=== PATIENT | male | born 1970 | race African-American/Black ===

== ENCOUNTER 2018-03-25 07:38 | Emergency (ER) | payer MEDICAID ==
[~2018-03-25] VITALS: Ht 180.3 cm; Wt 91.0 kg
[2018-03-25] MEDS ORDERED: MORPHINE SULFATE 4 MG/ML CPJ (NOT FOR IM USE) IV STA (07:49)
[2018-03-25] MEDS ORDERED: ONDANSETRON HCL 4MG/2ML VIAL IV STA (07:49)
[2018-03-25 08:17] LABS: BASOPHILS % 0.9 % (0.0-2.0); EOSINOPHILS % 1.7 % (0.0-5.0); HEMATOCRIT. 36.3 % (42.0-52.0); HEMOGLOBIN. 12.4 g/dL (14.0-18.0); LYMPHOCYTES % 15.5 % (20.0-50.0); MEAN CORPUSCULAR HEMOGLOBIN 33.7 pg (28.0-32.0); MEAN CORPUSCULAR VOLUME 98.9 fL (80.0-94.0); MEAN PLATELET VOLUME 6.8 fl (7.4-10.4); MONOCYTES % 5.8 % (2.0-8.0); NEUTROPHILS % 76.1 % (40.0-76.0); PLATELET 247 x1000/uL (130-400); RED BLOOD CELL COUNT 3.67 mill/uL (4.7-6.1); RED CELL DISTRIBUTION WIDTH 13.5 % (11.6-14.6)
[2018-03-25 08:23] LABS: CHLORIDE 106 mEq/L (98-107)
[2018-03-25 08:26] LABS: PARTIAL THROMBOPLASTIN TIME 27.5 sec (23.4-31.0)
[2018-03-25 08:44] LABS: CREATINE KINASE 1203 IU/L (39-308)
[2018-03-25 11:04] VITALS: BP 133/83
[2018-03-25 11:59] LABS: *AMPHETAMINES SCREEN URINE NEGATIVE (NEGATIVE); *BARBITURATES SCREEN URINE NEGATIVE (NEGATIVE)
[2018-03-25 12:00] LABS: *BENZODIAZEPINES SCREEN URINE NEGATIVE (NEGATIVE); *COCAINE SCREEN URINE NEGATIVE (NEGATIVE); CANNABINOID URINE SCREEN NEGATIVE (NEGATIVE); METHADONE URINE SCREEN NEGATIVE (NEGATIVE); OPIATES URINE SCREEN PRESUMTIVE POSITIVE (NEGATIVE); PHENCYCLIDINE URINE SCREEN NEGATIVE (NEGATIVE)
== END 2018-03-25 11:59 | disposition home or self-care (01) ==
LOC: ER 07:54
DX: R07.89 Other chest pain (principal); M62.82 Rhabdomyolysis; I10 Essential (primary) hypertension; J45.909 Unspecified asthma, uncomplicated; F17.200 Nicotine dependence, unspecified, uncomplicated
CPT/HCPCS: 36415; 71045; 76604; 80053; 80305; 82550; 82553; 83690; 83880; 84484; 85025; 85610; 85730; 93005; 96374; 96375; 99285; J2270; J2405; Z7610

== ENCOUNTER 2021-10-02 07:36 | Emergency (ER) | payer BC, MEDICAID ==
[~2021-10-02] VITALS: Ht 180.3 cm; Wt 79.0 kg
[2021-10-02 07:50] VITALS: BP 144/87
[2021-10-02] MEDS ORDERED: PENICILLIN G BENZATHINE 2,400,000 UNITS/4ML SYR IM ONE (08:15)
== END 2021-10-02 10:12 | disposition home or self-care (01) ==
LOC: ER 07:36
DX: A53.9 Syphilis, unspecified (principal); J45.909 Unspecified asthma, uncomplicated
CPT/HCPCS: 86592; 96372; 99283; J0561

== ENCOUNTER 2022-06-05 10:21 | Emergency (ER) | payer BC, MEDICAID ==
[~2022-06-05] VITALS: Ht 172.7 cm; Wt 86.0 kg
[2022-06-05 12:59] LABS: CHLORIDE 104 mEq/L (98-107)
[2022-06-05 13:08] LABS: BASOPHILS % 0.5 % (0.0-2.0); EOSINOPHILS % 1.1 % (0.0-5.0); HEMATOCRIT. 40.5 % (42.0-52.0); HEMOGLOBIN. 13.7 g/dL (14.0-18.0); LYMPHOCYTES % 12.2 % (20.0-50.0); MEAN CORPUSCULAR HEMOGLOBIN 31.8 pg (28.0-32.0); MEAN CORPUSCULAR VOLUME 94.1 fL (80.0-94.0); MEAN PLATELET VOLUME 7.1 fl (7.4-10.4); MONOCYTES % 8.1 % (2.0-8.0); NEUTROPHILS % 78.1 % (40.0-76.0); PLATELET 247 x1000/uL (130-400); RED CELL DISTRIBUTION WIDTH 13.6 % (11.6-14.6)
[2022-06-05 13:09] LABS: CLARITY URINE CLOUDY (CLEAR); COLOR URINE DARK YELLOW (YELLOW); KETONES URINE 1+ (NEGATIVE); LEUKOCYTE ESTERASE URINE TRACE (NEGATIVE); NITRITE URINE NEGATIVE (NEGATIVE); OCCULT BLOOD URINE NEGATIVE (NEGATIVE); PH URINE 5.5 (4.5-8.0); PROTEIN URINE 2+ (NEGATIVE); SPECIFIC GRAVITY URINE 1.035 (1.005-1.030)
[2022-06-05 13:15] LABS: ETHANOL BLOOD < 10 mg/dL
[2022-06-05 13:22] LABS: *AMPHETAMINES SCREEN URINE PRESUMTIVE POSITIVE (NEGATIVE); *BARBITURATES SCREEN URINE NEGATIVE (NEGATIVE); *BENZODIAZEPINES SCREEN URINE NEGATIVE (NEGATIVE); *COCAINE SCREEN URINE NEGATIVE (NEGATIVE); CANNABINOID URINE SCREEN PRESUMTIVE POSITIVE (NEGATIVE); METHADONE URINE SCREEN NEGATIVE (NEGATIVE); OPIATES URINE SCREEN NEGATIVE (NEGATIVE); PHENCYCLIDINE URINE SCREEN NEGATIVE (NEGATIVE)
[2022-06-06] MEDS ORDERED: TOPUD PO (11:49)
[2022-06-08] MEDS: RISPERIDONE 1MG TABLET PO SCH (21:00)
[2022-06-09 09:00] VITALS: BP 116/76
[2022-06-09] MEDS: RISPERIDONE 1MG TABLET PO SCH (09:00)
[2022-06-09] MEDS ORDERED: ALBU6.7H9 INH (11:00)
== END 2022-06-09 11:20 | disposition home or self-care (01) ==
LOC: ER 10:35
DX: U07.1 COVID-19 (principal); F15.10 Other stimulant abuse, uncomplicated; J45.909 Unspecified asthma, uncomplicated; Z98.890 Other specified postprocedural states
CPT/HCPCS: 36415; 80053; 80305; 80307; 80320; 80329; 81003; 84443; 85025; 99285; C9803; U0003; U0005; G0480

== ENCOUNTER 2022-08-31 17:35 | Inpatient (IN) | payer MEDICARE, MEDICAID ==
[~2022-08-31] VITALS: Ht 172.7 cm; Wt 84.4 kg
[~2022-08-31 17:35] MED LIST: ALBU6.7H3 INH; TOPUD PO
[2022-08-31] MEDS ORDERED: LORAZEPAM 2MG/ML CPJ IV STA (19:47)
[2022-08-31] MEDS ORDERED: SODIUM CHLORIDE 0.9% 1,000 ML IV ONE ×2 (20:00→22:45)
[2022-08-31 21:25] LABS: BASOPHILS % 0.4 % (0.0-2.0); EOSINOPHILS % 1.1 % (0.0-5.0); HEMATOCRIT. 36.8 % (42.0-52.0); HEMOGLOBIN. 12.7 g/dL (14.0-18.0); MEAN CORPUSCULAR HEMOGLOBIN 33.9 pg (28.0-32.0); MEAN CORPUSCULAR VOLUME 98.1 fL (80.0-94.0); MEAN PLATELET VOLUME 6.6 fl (7.4-10.4); NEUTROPHILS % 77.5 % (40.0-76.0); PLATELET 290 x1000/uL (130-400); RED BLOOD CELL COUNT 3.75 mill/uL (4.7-6.1); RED CELL DISTRIBUTION WIDTH 13.2 % (11.6-14.6)
[2022-08-31] MEDS ORDERED: OLANZAPINE 10 MG/VIAL IM ONE (21:30)
[2022-08-31 21:31] LABS: CHLORIDE 98 mEq/L (98-107)
[2022-08-31 21:51] LABS: CREATINE KINASE 2073 IU/L (39-308); ETHANOL BLOOD < 10 mg/dL
[2022-09-01 10:20] VITALS: BP 123/86
[2022-09-01] MEDS: ENOXAPARIN 40MG/0.4ML SYR SUBCUT SCH (12:00)
[2022-09-01] MEDS ORDERED: LORAZEPAM 2MG/ML CPJ IV PRN (12:30)
[2022-09-01] MEDS ORDERED: MAGNESIUM/ALUMINUM HYDROXIDE/SIMETHICONE 30ML UDC PO PRN (12:30)
[2022-09-01] MEDS ORDERED: CLONIDINE 0.1MG TABLET PO PRN (12:30)
[2022-09-01] MEDS ORDERED: ONDANSETRON HCL 4MG/2ML INJ IV PRN (12:30)
[2022-09-01 17:17] LABS: HEMATOCRIT 38.7 % (42.0-52.0); HEMOGLOBIN 13.2 g/dL (14.0-18.0); MEAN CORPUSCULAR HEMOGLOBIN 33.3 pg (28.0-32.0); MEAN CORPUSCULAR VOLUME 97.9 fL (80.0-94.0); PLATELET 313 x1000/uL (130-400); RED BLOOD CELL COUNT 3.95 mill/uL (4.7-6.1); RED CELL DISTRIBUTION WIDTH 12.9 % (11.6-14.6)
[2022-09-01 17:39] LABS: CHLORIDE 103 mEq/L (98-107)
[2022-09-01] MEDS: SODIUM CHLORIDE 0.9% 1,000 ML IV SCH ×2 (17:45→20:51)
[2022-09-01 18:01] LABS: CREATINE KINASE 1231 IU/L (39-308)
[2022-09-01] MEDS ORDERED: NALOXONE HCL 0.4MG/ML VIAL IV PRN (19:15)
[2022-09-01] MEDS ORDERED: POTASSIUM CHLORIDE 20MEQ TABLET SR PO NR (19:15)
[2022-09-01] MEDS: FLUOXETINE HCL 10 MG CAPSULE PO SCH (20:49)
[2022-09-01] MEDS: HYDROCODONE/ACETAMINOPHEN 5/325MG TABLET PO PRN (20:51)
[2022-09-01] MEDS: NICOTINE 14MG PATCH TD SCH (20:56)
[2022-09-02] VITALS: BP 120/77
[2022-09-02 01:16] LABS: CREATINE KINASE 918 IU/L (39-308)
[2022-09-02 04:00] VITALS: BP 120/61
[2022-09-02 08:00] VITALS: BP 107/71
[2022-09-02 08:32] LABS: BASOPHILS % 0.5 % (0.0-2.0); EOSINOPHILS % 4.3 % (0.0-5.0); HEMATOCRIT. 37.9 % (42.0-52.0); HEMOGLOBIN. 13.1 g/dL (14.0-18.0); LYMPHOCYTES % 22.3 % (20.0-50.0); MEAN CORPUSCULAR HEMOGLOBIN 33.7 pg (28.0-32.0); MEAN CORPUSCULAR VOLUME 97.7 fL (80.0-94.0); MEAN PLATELET VOLUME 6.9 fl (7.4-10.4); MONOCYTES % 10.8 % (2.0-8.0); NEUTROPHILS % 62.1 % (40.0-76.0); PLATELET 296 x1000/uL (130-400); RED BLOOD CELL COUNT 3.88 mill/uL (4.7-6.1); RED CELL DISTRIBUTION WIDTH 12.9 % (11.6-14.6)
[2022-09-02] MEDS: NICOTINE 14MG PATCH TD SCH (08:43)
[2022-09-02] MEDS: FLUOXETINE HCL 10 MG CAPSULE PO SCH (08:43)
[2022-09-02] MEDS: HYDROCODONE/ACETAMINOPHEN 5/325MG TABLET PO PRN ×4 (08:44→21:15)
[2022-09-02 12:00] VITALS: BP 152/80
[2022-09-02] MEDS: SODIUM CHLORIDE 0.9% 1,000 ML IV SCH ×2 (12:30→21:16)
[2022-09-02] MEDS: ENOXAPARIN 40MG/0.4ML SYR SUBCUT SCH (13:16)
[2022-09-02 15:59] LABS: CREATINE KINASE 839 IU/L (39-308)
[2022-09-02 16:00] VITALS: BP 121/77
[2022-09-02 16:08] LABS: CHLORIDE 104 mEq/L (98-107)
[2022-09-02] MEDS: ACETAMINOPHEN 325MG TABLET PO PRN (16:18)
[2022-09-02 16:22] LABS: CREATINE KINASE 828 IU/L (39-308); PHOSPHORUS 3.6 mg/dL (2.5-4.9)
[2022-09-02 20:00] VITALS: BP 100/62
[2022-09-02 20:02] LABS: CLARITY URINE CLEAR (CLEAR); COLOR URINE YELLOW (YELLOW); KETONES URINE NEGATIVE (NEGATIVE); LEUKOCYTE ESTERASE URINE NEGATIVE (NEGATIVE); NITRITE URINE NEGATIVE (NEGATIVE); OCCULT BLOOD URINE NEGATIVE (NEGATIVE); PH URINE 6.5 (4.5-8.0); PROTEIN URINE NEGATIVE (NEGATIVE); SPECIFIC GRAVITY URINE 1.021 (1.005-1.030)
[2022-09-02 20:56] LABS: *AMPHETAMINES SCREEN URINE PRESUMTIVE POSITIVE (NEGATIVE); *BARBITURATES SCREEN URINE NEGATIVE (NEGATIVE); *BENZODIAZEPINES SCREEN URINE NEGATIVE (NEGATIVE); *COCAINE SCREEN URINE NEGATIVE (NEGATIVE); CANNABINOID URINE SCREEN NEGATIVE (NEGATIVE); METHADONE URINE SCREEN NEGATIVE (NEGATIVE); OPIATES URINE SCREEN PRESUMTIVE POSITIVE (NEGATIVE); PHENCYCLIDINE URINE SCREEN NEGATIVE (NEGATIVE)
[2022-09-03] VITALS: BP 113/54
[2022-09-03 04:00] VITALS: BP 103/72
[2022-09-03] MEDS: SODIUM CHLORIDE 0.9% 1,000 ML IV SCH (05:20)
[2022-09-03] MEDS: FLUOXETINE HCL 10 MG CAPSULE PO SCH (08:52)
[2022-09-03 09:01] LABS: BASOPHILS % 0.6 % (0.0-2.0); EOSINOPHILS % 4.6 % (0.0-5.0); HEMATOCRIT. 39.9 % (42.0-52.0); HEMOGLOBIN. 13.4 g/dL (14.0-18.0); LYMPHOCYTES % 27.7 % (20.0-50.0); MEAN CORPUSCULAR HEMOGLOBIN 33.9 pg (28.0-32.0); MEAN CORPUSCULAR VOLUME 101.2 fL (80.0-94.0); MEAN PLATELET VOLUME 6.9 fl (7.4-10.4); MONOCYTES % 10.5 % (2.0-8.0); NEUTROPHILS % 56.6 % (40.0-76.0); PLATELET 285 x1000/uL (130-400); RED BLOOD CELL COUNT 3.95 mill/uL (4.7-6.1)
[2022-09-03 09:21] LABS: CHLORIDE 109 mEq/L (98-107)
[2022-09-03] MEDS: ACETAMINOPHEN 325MG TABLET PO PRN ×2 (09:21→10:57)
[2022-09-03] MEDS: NICOTINE 14MG PATCH TD SCH (10:56)
[2022-09-03] MEDS ORDERED: FLUOX10 PO (12:30)
[2022-09-03] MEDS: ENOXAPARIN 40MG/0.4ML SYR SUBCUT SCH (13:27)
[2022-09-03 16:39] VITALS: BP 120/68
== END 2022-09-03 17:07 | disposition home health service (06) | DRG 917 ==
LOC: ER 17:35 → 6EST 22:51 → ENRESERV 09-01 06:12
PROVIDERS: ADMIT Internal Medicine; ATTEND Internal Medicine
DX: T50.991A Poisoning by other drugs, medicaments and biological substances, accidental (unintentional), initial encounter (principal); G92.8 Other toxic encephalopathy; M62.82 Rhabdomyolysis; F33.1 Major depressive disorder, recurrent, moderate; J45.909 Unspecified asthma, uncomplicated; F17.210 Nicotine dependence, cigarettes, uncomplicated; I10 Essential (primary) hypertension; Y92.89 Other specified places as the place of occurrence of the external cause; Z20.822 Contact with and (suspected) exposure to COVID-19
CPT/HCPCS: 36415; 73030; 76770; 80048; 80053; 80076; 80305; 80307; 80320; 80329; 81003; 82140; 82550; 83735; 84100; 84443; 84484; 85025; 85027; 87426; 93970; 97162; 99285; C9803; J1650; J2060; J3490; J7030; G0480

== ENCOUNTER 2022-11-10 01:16 | Inpatient (IN) | payer OTHER, MEDICAID ==
[~2022-11-10] VITALS: Ht 180.3 cm; Wt 83.6 kg
[2022-11-10] VITALS (49 sets, daily range): BP systolic 82–157; BP diastolic 49–93
[~2022-11-10 01:16] MED LIST changes: +FLUOX10 PO
[2022-11-10] MEDS ORDERED: SODIUM CHLORIDE 0.9% 1,000 ML IV ONE ×2 (01:45→03:15)
[2022-11-10] MEDS ORDERED: NALOXONE HCL 0.4 MG/ML 1ML VIAL IV PRN (01:45)
[2022-11-10 02:23] LABS: BG BASE EXCESS -14.9 mmol/L (-2.0-2.0); BG CARBOXYHEMOGLOBIN 1.3 % (0.5-1.5); BG DEOXYHEMOGLOBIN 3.8 % (0.0-5.0); BG FRACTION INSPIRED OXYGEN 100; BG HCO3 ACT 11.3 mmol/L (22.0-26.0); BG METHEMOGLOBIN 0.8 % (0.0-1.5); BG OXYGEN SATURATION 96.1 % (92.0-98.5); BG OXYHEMOGLOBIN 94.1 % (94.0-97.0); BG PCO2 27.4 mmHg (35.0-45.0); BG PH 7.232 (7.350-7.450); BG TOTAL HEMOGLOBIN 5.6 g/dL (12.0-18.0); BG VENT MODE r
[2022-11-10] MEDS ORDERED: ETOMIDATE 2MG/ML 10ML VIAL IV NR (02:30)
[2022-11-10] MEDS ORDERED: PROPOFOL 10MG/ML 100ML 100 ML IV ONE ×2 (02:30→02:45)
[2022-11-10] MEDS ORDERED: VECURONIUM BROMIDE 10 MG/VIAL IV NR (02:30)
[2022-11-10] MEDS ORDERED: ONDANSETRON HCL 4MG/2ML INJ IV NR (02:35)
[2022-11-10 02:43] LABS: BASOPHILS % 0.5 % (0.0-2.0); EOSINOPHILS % 2.3 % (0.0-5.0); HEMATOCRIT. 34.9 % (42.0-52.0); HEMOGLOBIN. 11.7 g/dL (14.0-18.0); MEAN CORPUSCULAR HEMOGLOBIN 32.7 pg (28.0-32.0); MEAN CORPUSCULAR VOLUME 97.8 fL (80.0-94.0); MEAN PLATELET VOLUME 6.7 fl (7.4-10.4); NEUTROPHILS % 67.2 % (40.0-76.0); PLATELET 289 x1000/uL (130-400); RED BLOOD CELL COUNT 3.57 mill/uL (4.7-6.1); RED CELL DISTRIBUTION WIDTH 13.1 % (11.6-14.6)
[2022-11-10] MEDS ORDERED: PROPOFOL 10MG/ML 100ML 100 ML IV NR (02:45)
[2022-11-10] MEDS ORDERED: EPINEPHRINE 0.1MG/ML (1:10,000) 10ML SYR IV NR (02:45)
[2022-11-10 02:46] LABS: CLARITY URINE CLEAR (CLEAR); COLOR URINE DARK YELLOW (YELLOW); KETONES URINE 1+ (NEGATIVE); LEUKOCYTE ESTERASE URINE TRACE (NEGATIVE); NITRITE URINE NEGATIVE (NEGATIVE); OCCULT BLOOD URINE NEGATIVE (NEGATIVE); PROTEIN URINE TRACE (NEGATIVE); SPECIFIC GRAVITY URINE 1.038 (1.005-1.030)
[2022-11-10 03:29] LABS: CHLORIDE 103 mEq/L (98-107)
[2022-11-10 03:37] LABS: ETHANOL BLOOD < 10 mg/dL
[2022-11-10 03:46] LABS: *AMPHETAMINES SCREEN URINE PRESUMTIVE POSITIVE (NEGATIVE); *BARBITURATES SCREEN URINE NEGATIVE (NEGATIVE); *BENZODIAZEPINES SCREEN URINE NEGATIVE (NEGATIVE); *COCAINE SCREEN URINE NEGATIVE (NEGATIVE); CANNABINOID URINE SCREEN NEGATIVE (NEGATIVE); METHADONE URINE SCREEN NEGATIVE (NEGATIVE); OPIATES URINE SCREEN NEGATIVE (NEGATIVE); PHENCYCLIDINE URINE SCREEN NEGATIVE (NEGATIVE)
[2022-11-10] MEDS ORDERED: NOREPINEPHRINE 8MG/250ML PMX 250 ML IV STA (05:11)
[2022-11-10] MEDS: NOREPINEPHRINE 8 MG in DEXTROSE 5% WATER 250 ML IV NR ×2 (06:22→10:49)
[2022-11-10] MEDS ORDERED: ACETAMINOPHEN 325MG TABLET PO PRN (07:30)
[2022-11-10] MEDS ORDERED: DOCUSATE SODIUM 100MG CAPSULE PO PRN (07:30)
[2022-11-10] MEDS ORDERED: NITROGLYCERIN 0.4MG TABLET SL SL PRN (07:30)
[2022-11-10] MEDS ORDERED: ATROPINE SULFATE 1MG/ML VIAL IV PRN (07:30)
[2022-11-10] MEDS ORDERED: ONDANSETRON HCL 4MG/2ML INJ IV PRN (07:30)
[2022-11-10] MEDS ORDERED: GUAIFENESIN 200MG/10ML SUGAR FREE UDC PO PRN (07:30)
[2022-11-10] MEDS ORDERED: MAGNESIUM/ALUMINUM HYDROXIDE/SIMETHICONE 30ML UDC PO PRN (07:30)
[2022-11-10] MEDS ORDERED: IPRATROPIUM/ALBUTEROL 0.5-3(2.5)MG/3ML NEB NEB PRN (07:30)
[2022-11-10] MEDS ORDERED: KETOROLAC 15MG/ML VIAL IV PRN (07:30)
[2022-11-10] MEDS ORDERED: PIPERACILLIN/TAZ 3.375G PREMIX 50 ML IV SCH (07:45)
[2022-11-10] MEDS ORDERED: KCL 20MEQ/100ML PREMIX 100 ML IV NR (08:00)
[2022-11-10] MEDS ORDERED: ENOXAPARIN 30MG/0.3ML SYR SUBCUT SCH (08:00)
[2022-11-10] MEDS: IPRATROPIUM/ALBUTEROL 0.5-3(2.5)MG/3ML NEB HHN SCH ×3 (08:28→19:50)
[2022-11-10] MEDS ORDERED: PROPOFOL 10MG/ML 100ML 100 ML IV PRN ×2 (08:30→14:45)
[2022-11-10] MEDS ORDERED: NOREPINEPHRINE 8 MG in DEXT 5% WATER 242 ML IV PRN (08:30)
[2022-11-10] MEDS: DOPAMINE 400MG/250ML PREMIX 250 ML IV SCH ×3 (09:07→20:49)
[2022-11-10 09:11] LABS: BG BASE EXCESS -4.7 mmol/L (-2.0-2.0); BG CARBOXYHEMOGLOBIN 0.5 % (0.5-1.5); BG DEOXYHEMOGLOBIN 0.4 % (0.0-5.0); BG HCO3 ACT 22.2 mmol/L (22.0-26.0); BG METHEMOGLOBIN 0.6 % (0.0-1.5); BG OXYGEN SATURATION 99.6 % (92.0-98.5); BG OXYHEMOGLOBIN 98.5 % (94.0-97.0); BG PCO2 48.3 mmHg (35.0-45.0); BG PH 7.281 (7.350-7.450); BG PO2 462.1 mmHg (75.0-100.0); BG SAMPLE SITE LEFT RADIAL; BG TOTAL HEMOGLOBIN 14.7 g/dL (12.0-18.0); BG VENT MODE VENT - AC
[2022-11-10] MEDS: PANTOPRAZOLE SODIUM 40 MG/VIAL IV SCH (09:17)
[2022-11-10 09:23] LABS: T4 FREE 1.2 ng/dL (0.76-1.46)
[2022-11-10 09:43] LABS: VITAMIN B12 SERUM 294 pg/mL (211-911)
[2022-11-10 09:52] LABS: FOLIC ACID (FOLATE) SERUM > 20.00 ng/mL (>5.38)
[2022-11-10] MEDS: DEXT 5%/LACTATED RINGERS 1,000 ML IV SCH ×2 (10:47→16:26)
[2022-11-10] MEDS ORDERED: EMTR1TAB13 MT (12:34)
[2022-11-10] MEDS ORDERED: GABA800T97 MT (12:34)
[2022-11-10] MEDS ORDERED: GABA-532 MT (12:34)
[2022-11-10] MEDS ORDERED: DULO60CA45 PO (12:34)
[2022-11-10] MEDS ORDERED: BACL20TA MT (12:34)
[2022-11-10] MEDS ORDERED: NAPR-681 MT (12:34)
[2022-11-10] MEDS ORDERED: GABA-290 MT (12:34)
[2022-11-10] MEDS: PIPERACILLIN/TAZOBACTAM 3.375G in DEXT 5% WATER 50ML IV SCH ×2 (14:01→20:49)
[2022-11-10] MEDS: ENOXAPARIN 30MG/0.3ML SYR SUBCUT SCH ×2 (14:01→20:47)
[2022-11-10] MEDS ORDERED: NOREPINEPHRINE 32 MG in DEXT 5% WATER 218 ML IV PRN (14:45)
[2022-11-10 17:39] LABS: PHOSPHORUS 0.9 mg/dL (2.5-4.9)
[2022-11-10] MEDS ORDERED: POTASSIUM PHOS,M-BASIC-D-BASIC 30 MMOL in SODIUM CHLORIDE 0.9% 500 ML IV NR (18:45)
[2022-11-10 23:36] LABS: CREATINE KINASE MB FRACTION 4.5 ng/mL (0.5-3.6)
[2022-11-11] VITALS (76 sets, daily range): BP systolic 94–158; BP diastolic 57–92
[2022-11-11] MEDS: IPRATROPIUM/ALBUTEROL 0.5-3(2.5)MG/3ML NEB HHN SCH ×3 (00:10→07:54)
[2022-11-11] MEDS: DEXT 5%/LACTATED RINGERS 1,000 ML IV SCH ×3 (01:03→16:36)
[2022-11-11 05:56] LABS: BASOPHILS % 0.3 % (0.0-2.0); EOSINOPHILS % 2.2 % (0.0-5.0); HEMATOCRIT. 33.6 % (42.0-52.0); HEMOGLOBIN. 11.7 g/dL (14.0-18.0); LYMPHOCYTES % 16.6 % (20.0-50.0); MEAN CORPUSCULAR HEMOGLOBIN 33.5 pg (28.0-32.0); MEAN CORPUSCULAR VOLUME 96.4 fL (80.0-94.0); MEAN PLATELET VOLUME 7.1 fl (7.4-10.4); NEUTROPHILS % 71.9 % (40.0-76.0); PLATELET 228 x1000/uL (130-400); RED BLOOD CELL COUNT 3.49 mill/uL (4.7-6.1); RED CELL DISTRIBUTION WIDTH 12.9 % (11.6-14.6)
[2022-11-11] MEDS: PIPERACILLIN/TAZOBACTAM 3.375G in DEXT 5% WATER 50ML IV SCH ×3 (06:01→21:34)
[2022-11-11 06:02] LABS: CHLORIDE 110 mEq/L (98-107)
[2022-11-11 06:17] LABS: PHOSPHORUS 4.4 mg/dL (2.5-4.9)
[2022-11-11] MEDS: ENOXAPARIN 30MG/0.3ML SYR SUBCUT SCH (08:25)
[2022-11-11] MEDS: PANTOPRAZOLE SODIUM 40 MG/VIAL IV SCH (08:25)
[2022-11-11 09:15] LABS: BG BASE EXCESS 0.2 mmol/L (-2.0-2.0); BG CARBOXYHEMOGLOBIN 0.4 % (0.5-1.5); BG DEOXYHEMOGLOBIN 2.4 % (0.0-5.0); BG FRACTION INSPIRED OXYGEN 40; BG HCO3 ACT 25.6 mmol/L (22.0-26.0); BG METHEMOGLOBIN 0.3 % (0.0-1.5); BG OXYGEN SATURATION 97.6 % (92.0-98.5); BG OXYHEMOGLOBIN 96.9 % (94.0-97.0); BG PCO2 44.7 mmHg (35.0-45.0); BG PH 7.376 (7.350-7.450); BG PO2 109.6 mmHg (75.0-100.0); BG SAMPLE SITE RIGHT RADIAL; BG TOTAL HEMOGLOBIN 12.7 g/dL (12.0-18.0); BG VENT MODE VENT - AC
[2022-11-11] MEDS ORDERED: IPRATROPIUM BROMIDE (0.02%) 0.5MG/2.5ML NEB ONE (12:37)
[2022-11-11] MEDS ORDERED: ALBUTEROL (0.083%) 2.5MG/3ML NEB ONE (12:37)
[2022-11-11] MEDS ORDERED: IPRATROPIUM BROMIDE (0.02%) 0.5MG/2.5ML NEB HHN PRN (12:45)
[2022-11-11] MEDS ORDERED: ALBUTEROL (0.083%) 2.5MG/3ML NEB HHN PRN (12:45)
[2022-11-11] MEDS ORDERED: DOPAMINE 400MG/250ML PREMIX 250 ML IV PRN (16:15)
[2022-11-11] MEDS: ALBUTEROL (0.083%) 2.5MG/3ML NEB HHN SCH (20:27)
[2022-11-11] MEDS: IPRATROPIUM BROMIDE (0.02%) 0.5MG/2.5ML NEB HHN SCH (20:27)
[2022-11-11] MEDS ORDERED: FENTANYL CITRATE/PF 2,500 MCG in SODIUM CHLORIDE 0.9% 200 ML IV PRN (20:45)
[2022-11-11] MEDS: MIDAZOLAM HCL 100 MG in SODIUM CHLORIDE 0.9% 80 ML IV PRN (21:59)
[2022-11-12] VITALS (78 sets, daily range): BP systolic 96–179; BP diastolic 58–107
[2022-11-12] MEDS: DEXT 5%/LACTATED RINGERS 1,000 ML IV SCH ×3 (01:48→15:15)
[2022-11-12] MEDS: IPRATROPIUM BROMIDE (0.02%) 0.5MG/2.5ML NEB HHN SCH ×3 (02:23→14:19)
[2022-11-12] MEDS: ALBUTEROL (0.083%) 2.5MG/3ML NEB HHN SCH ×4 (02:23→21:03)
[2022-11-12] MEDS: PIPERACILLIN/TAZOBACTAM 3.375G in DEXT 5% WATER 50ML IV SCH ×3 (05:06→22:30)
[2022-11-12 05:30] LABS: BASOPHILS % 0.3 % (0.0-2.0); HEMATOCRIT. 33.5 % (42.0-52.0); HEMOGLOBIN. 11.4 g/dL (14.0-18.0); LYMPHOCYTES % 17.6 % (20.0-50.0); MEAN CORPUSCULAR HEMOGLOBIN 33.4 pg (28.0-32.0); MEAN CORPUSCULAR VOLUME 98.2 fL (80.0-94.0); MONOCYTES % 9.4 % (2.0-8.0); NEUTROPHILS % 70.7 % (40.0-76.0); PLATELET 203 x1000/uL (130-400); RED BLOOD CELL COUNT 3.41 mill/uL (4.7-6.1)
[2022-11-12 05:32] LABS: CHLORIDE 109 mEq/L (98-107)
[2022-11-12 05:54] LABS: CREATINE KINASE 1069 IU/L (39-308); PHOSPHORUS 2.3 mg/dL (2.5-4.9)
[2022-11-12 09:08] LABS: ABSOLUTE EOSINOPHILS 0.2 x10E3/uL (0.0-0.4); ABSOLUTE LYMPHOCYTES 1.3 x10E3/uL (0.7-3.1); ABSOLUTE MONOCYTES 0.9 x10E3/uL (0.1-0.9); ABSOLUTE NEUTROPHILS 6.4 x10E3/uL (1.4-7.0); BASOPHILS 0 % (Not Estab.); HEMOGLOBIN 14.2 g/dL (13.0-17.7); IMMATURE GRANULOCYTES 0 % (Not Estab.); LYMPHOCYTES 15 % (Not Estab.); MEAN CORPUSCULAR HGB CONC. 33.8 g/dL (31.5-35.7); MEAN CORPUSCULAR VOLUME 95 fL (79-97); MONOCYTES 10 % (Not Estab.); NEUTROPHILS 72 % (Not Estab.); PLATELETS 309 x10E3/uL (150-450); RBC 4.44 x10E6/uL (4.14-5.80); RED CELL DISTRIBUTION WIDTH 11.5 % (11.6-15.4); WBC 8.8 x10E3/uL (3.4-10.8)
[2022-11-12] MEDS: ENOXAPARIN 40MG/0.4ML SYR SUBCUT SCH (09:12)
[2022-11-12] MEDS: PANTOPRAZOLE SODIUM 40 MG/VIAL IV SCH (09:12)
[2022-11-12] MEDS ORDERED: POTASSIUM PHOS,M-BASIC-D-BASIC 30 MMOL in DEXT 5% WATER 500 ML IV ONE (10:00)
[2022-11-12] MEDS ORDERED: LORAZEPAM 2MG/ML CPJ IM PRN (10:00)
[2022-11-12 10:11] LABS: % CD 3 POS. LYMPHOCYTES 76.9 % (57.5-86.2); % CD 4 POS. LYMPHOCYTES 45.5 % (30.8-58.5); % CD 8 POS. LYMPH 32.2 % (12.0-35.5); ABSOLUTE CD 3 1000 /uL (622-2402); ABSOLUTE CD 4 HELPER 592 /uL (359-1519); ABSOLUTE CD 8 SUPPRESSOR 419 /uL (109-897); CD4/CD8 RATIO 1.41 (0.92-3.72)
[2022-11-12] MEDS ORDERED: HALOPERIDOL LACTATE 5MG/ML VIAL IM PRN (10:15)
[2022-11-13] VITALS (63 sets, daily range): BP systolic 95–213; BP diastolic 60–111
[2022-11-13] MEDS: ALBUTEROL (0.083%) 2.5MG/3ML NEB HHN SCH ×4 (02:11→20:00)
[2022-11-13] MEDS: IPRATROPIUM BROMIDE (0.02%) 0.5MG/2.5ML NEB HHN SCH ×4 (02:11→20:00)
[2022-11-13] MEDS: DEXT 5%/LACTATED RINGERS 1,000 ML IV SCH ×2 (02:20→08:24)
[2022-11-13] MEDS: MIDAZOLAM HCL 100 MG in SODIUM CHLORIDE 0.9% 80 ML IV PRN (02:20)
[2022-11-13] MEDS: PIPERACILLIN/TAZOBACTAM 3.375G in DEXT 5% WATER 50ML IV SCH ×3 (06:35→21:06)
[2022-11-13] MEDS: ENOXAPARIN 40MG/0.4ML SYR SUBCUT SCH (09:20)
[2022-11-13] MEDS: PANTOPRAZOLE SODIUM 40 MG/VIAL IV SCH (09:20)
[2022-11-13 10:52] LABS: BASOPHILS % 0.5 % (0.0-2.0); EOSINOPHILS % 7.8 % (0.0-5.0); HEMATOCRIT. 30.5 % (42.0-52.0); HEMOGLOBIN. 10.5 g/dL (14.0-18.0); LYMPHOCYTES % 19.9 % (20.0-50.0); MEAN CORPUSCULAR HEMOGLOBIN 33.5 pg (28.0-32.0); MEAN CORPUSCULAR VOLUME 97.3 fL (80.0-94.0); MONOCYTES % 10.6 % (2.0-8.0); NEUTROPHILS % 61.2 % (40.0-76.0); PLATELET 203 x1000/uL (130-400); RED BLOOD CELL COUNT 3.14 mill/uL (4.7-6.1); RED CELL DISTRIBUTION WIDTH 12.7 % (11.6-14.6)
[2022-11-13 10:55] LABS: CHLORIDE 109 mEq/L (98-107)
[2022-11-13 11:03] LABS: PHOSPHORUS 3.7 mg/dL (2.5-4.9)
[2022-11-13 14:24] LABS: BG BASE EXCESS 3.6 mmol/L (-2.0-2.0); BG CARBOXYHEMOGLOBIN 0.3 % (0.5-1.5); BG DEOXYHEMOGLOBIN 3.8 % (0.0-5.0); BG FRACTION INSPIRED OXYGEN 35; BG HCO3 ACT 28.8 mmol/L (22.0-26.0); BG METHEMOGLOBIN 0.4 % (0.0-1.5); BG OXYGEN SATURATION 96.2 % (92.0-98.5); BG OXYHEMOGLOBIN 95.5 % (94.0-97.0); BG PCO2 45.6 mmHg (35.0-45.0); BG PH 7.419 (7.350-7.450); BG PO2 90.3 mmHg (75.0-100.0); BG SAMPLE SITE LEFT BRACHIAL; BG TOTAL HEMOGLOBIN 15.7 g/dL (12.0-18.0); BG TOTAL RESPIRATORY RATE 15 b/min; BG VENT MODE VENT - CPAP
[2022-11-13] MEDS ORDERED: HALOPERIDOL LACTATE 5MG/ML VIAL IM PRN (16:45)
[2022-11-13] MEDS: HALOPERIDOL LACTATE 5MG/ML VIAL IM PRN (21:07)
[2022-11-14] VITALS (30 sets, daily range): BP systolic 144–191; BP diastolic 77–132
[2022-11-14] MEDS: ALBUTEROL (0.083%) 2.5MG/3ML NEB HHN SCH ×4 (02:00→20:42)
[2022-11-14] MEDS: IPRATROPIUM BROMIDE (0.02%) 0.5MG/2.5ML NEB HHN SCH ×4 (02:00→20:42)
[2022-11-14] MEDS: PIPERACILLIN/TAZOBACTAM 3.375G in DEXT 5% WATER 50ML IV SCH ×3 (05:14→21:16)
[2022-11-14 06:11] LABS: BASOPHILS % 0.4 % (0.0-2.0); HEMATOCRIT. 33.9 % (42.0-52.0); HEMOGLOBIN. 11.6 g/dL (14.0-18.0); LYMPHOCYTES % 18.1 % (20.0-50.0); MEAN CORPUSCULAR HEMOGLOBIN 33.1 pg (28.0-32.0); MEAN CORPUSCULAR VOLUME 96.4 fL (80.0-94.0); MEAN PLATELET VOLUME 6.9 fl (7.4-10.4); MONOCYTES % 9.1 % (2.0-8.0); NEUTROPHILS % 69.4 % (40.0-76.0); PLATELET 245 x1000/uL (130-400); RED BLOOD CELL COUNT 3.52 mill/uL (4.7-6.1); RED CELL DISTRIBUTION WIDTH 12.6 % (11.6-14.6)
[2022-11-14 06:22] LABS: CHLORIDE 103 mEq/L (98-107)
[2022-11-14] MEDS: ACETAMINOPHEN 325MG TABLET PO PRN ×2 (08:38→20:15)
[2022-11-14] MEDS: PANTOPRAZOLE SODIUM 40 MG/VIAL IV SCH (08:38)
[2022-11-14] MEDS: ENOXAPARIN 40MG/0.4ML SYR SUBCUT SCH (08:40)
[2022-11-14] MEDS: HALOPERIDOL LACTATE 5MG/ML VIAL IM PRN (08:41)
[2022-11-14] MEDS: CLONIDINE 0.1MG TABLET PO PRN ×2 (11:03→21:29)
[2022-11-14] MEDS ORDERED: BENZTROPINE MESYLATE 1MG TABLET PO NR (12:30)
[2022-11-14] MEDS ORDERED: HALOPERIDOL LACTATE 5MG/ML VIAL IM NR (13:00)
[2022-11-14] MEDS: RILPIVIRINE PO SCH (14:22)
[2022-11-14] MEDS: EMTRICITABINE PO SCH (14:22)
[2022-11-14] MEDS: TENOFOVIR ALAFENAMIDE PO SCH (14:22)
[2022-11-14] MEDS ORDERED: HYDRALAZINE 20MG/ML VIAL IV PRN (15:30)
[2022-11-14] MEDS: AMLODIPINE 5MG TABLET PO SCH (17:27)
[2022-11-14] MEDS: ARIPIPRAZOLE 5MG TABLET PO SCH (20:15)
[2022-11-15] VITALS (9 sets, daily range): BP systolic 138–193; BP diastolic 78–104
[2022-11-15] MEDS: PIPERACILLIN/TAZOBACTAM 3.375G in DEXT 5% WATER 50ML IV SCH (05:15)
[2022-11-15] MEDS: IPRATROPIUM BROMIDE (0.02%) 0.5MG/2.5ML NEB HHN SCH ×3 (08:30→20:35)
[2022-11-15] MEDS: ALBUTEROL (0.083%) 2.5MG/3ML NEB HHN SCH ×3 (08:30→20:35)
[2022-11-15] MEDS: PANTOPRAZOLE SODIUM 40 MG/VIAL IV SCH (08:48)
[2022-11-15] MEDS: ENOXAPARIN 40MG/0.4ML SYR SUBCUT SCH (08:49)
[2022-11-15] MEDS: AMLODIPINE 5MG TABLET PO SCH (08:49)
[2022-11-15] MEDS: RILPIVIRINE PO SCH (08:50)
[2022-11-15] MEDS: TENOFOVIR ALAFENAMIDE PO SCH (08:50)
[2022-11-15] MEDS: EMTRICITABINE PO SCH (08:50)
[2022-11-15] MEDS ORDERED: FLUOXETINE HCL 10 MG CAPSULE PO SCH (09:00)
[2022-11-15] MEDS: ARIPIPRAZOLE 5MG TABLET PO SCH (20:52)
[2022-11-16] MEDS ORDERED: FAMOTIDINE 20MG TABLET PO SCH (09:00)
== END 2022-11-15 22:50 | disposition short-term general hospital (02) | DRG 917 ==
LOC: ER 01:16 → CVICU 04:42 → 7WST 11-15 01:39
PROVIDERS: ADMIT Internal Medicine; ATTEND Internal Medicine
PROC: 5A1945Z Respiratory Ventilation, 24-96 Consecutive Hours (ICD-10-PCS; 2022-11-10)
PROC: 0BH17EZ Insertion of Endotracheal Airway into Trachea, Via Natural or Artificial Opening (ICD-10-PCS; 2022-11-10)
PROC: 06HY33Z Insertion of Infusion Device into Lower Vein, Percutaneous Approach (ICD-10-PCS; 2022-11-10)
PROC: B54BZZA Ultrasonography of Right Lower Extremity Veins, Guidance (ICD-10-PCS; 2022-11-10)
PROC: 02HV33Z Insertion of Infusion Device into Superior Vena Cava, Percutaneous Approach (ICD-10-PCS; principal; 2022-11-12)
PROC: B548ZZA Ultrasonography of Superior Vena Cava, Guidance (ICD-10-PCS; 2022-11-12)
DX: T43.621A Poisoning by amphetamines, accidental (unintentional), initial encounter (principal); G92.9 Unspecified toxic encephalopathy; J96.01 Acute respiratory failure with hypoxia; N17.0 Acute kidney failure with tubular necrosis; E72.20 Disorder of urea cycle metabolism, unspecified; E87.20 Acidosis, unspecified; R17 Unspecified jaundice; M62.82 Rhabdomyolysis; E44.0 Moderate protein-calorie malnutrition; R45.851 Suicidal ideations; Z20.822 Contact with and (suspected) exposure to COVID-19; E78.5 Hyperlipidemia, unspecified; E87.6 Hypokalemia; J45.909 Unspecified asthma, uncomplicated; E83.39 Other disorders of phosphorus metabolism; D53.9 Nutritional anemia, unspecified; I95.9 Hypotension, unspecified; F15.10 Other stimulant abuse, uncomplicated; F43.10 Post-traumatic stress disorder, unspecified; Z68.25 Body mass index [BMI] 25.0-25.9, adult; Z79.899 Other long term (current) drug therapy; Z91.51 Personal history of suicidal behavior; Y92.89 Other specified places as the place of occurrence of the external cause
CPT/HCPCS: 31500; 36415; 36573; 36600; 71045; 80053; 80061; 80305; 80307; 80320; 80329; 81003; 82140; 82375; 82550; 82553; 82607; 82746; 82805; 82962; 83036; 83540; 83550; 83605; 83735; 84100; 84439; 84443; 84478; 84484; 85025; 86359; 86360; 87070; 87077; 87186; 87426; 87536; 93005; 93306; 93970; 94002; 94003; 94640; 99291; C1725; C9113; J0360; J1265; J1630; J1650; J2060; J2250; J2405; J2543; J2704; J3010; J3480; J3490; J7030; J7040; J7050; J7060; A5200; G0480

== ENCOUNTER 2023-02-26 17:10 | Emergency (ER) | payer OTHER, MEDICAID ==
[~2023-02-26] VITALS: Ht 177.8 cm; Wt 80.0 kg
[~2023-02-26 17:10] MED LIST changes: +BACL20TA MT; +DULO60CA45 PO; +EMTR1TAB13 MT; +GABA-290 MT; +GABA-532 MT; +GABA800T97 MT; +NAPR-681 MT
[2023-02-26 17:12] VITALS: BP 126/86
[2023-02-26] MEDS ORDERED: BACITRACIN ZINC OINT UDPKT TOP ONE (19:45)
[2023-02-26] MEDS ORDERED: LIDOCAINE HCL/EPINEPHRINE 1%-EPI 1:100,000 20 ML VIAL INFIL ONE (19:45)
[2023-02-26] MEDS ORDERED: ACETAMINOPHEN 325MG TABLET PO ONE (19:45)
[2023-02-26] MEDS ORDERED: CEPH500C2 MT (19:53)
[2023-02-26] MEDS ORDERED: IBUP-2028 MT (19:53)
[2023-02-26] MEDS ORDERED: SULF1TAB48 MT (19:53)
[2023-02-26] MEDS: LIDOCAINE HCL/EPINEPHRINE 1%-EPI 1:100,000 30 ML VIAL INFIL NR ×2 (20:23→20:24)
== END 2023-02-26 21:39 | disposition home or self-care (01) ==
LOC: ER 17:10
DX: L02.214 Cutaneous abscess of groin (principal); J45.909 Unspecified asthma, uncomplicated; F32.9 Major depressive disorder, single episode, unspecified; Z79.899 Other long term (current) drug therapy; F12.10 Cannabis abuse, uncomplicated
CPT/HCPCS: 10060; 99283; J3490

== ENCOUNTER 2023-02-28 15:28 | Emergency (ER) | payer OTHER, MEDICAID ==
[~2023-02-28] VITALS: Ht 172.7 cm; Wt 80.0 kg
[~2023-02-28 15:28] MED LIST changes: +CEPH500C2 MT; +IBUP-2028 MT; +SULF1TAB48 MT
[2023-02-28 15:38] VITALS: BP 126/83
== END 2023-02-28 18:14 | disposition home or self-care (01) ==
LOC: ER 15:28
DX: Z48.02 Encounter for removal of sutures (principal); J45.909 Unspecified asthma, uncomplicated; F32.9 Major depressive disorder, single episode, unspecified; F12.10 Cannabis abuse, uncomplicated; Z79.899 Other long term (current) drug therapy
CPT/HCPCS: 99281

== ENCOUNTER 2023-06-04 09:57 | Emergency (ER) | payer MEDICAID, OTHER ==
[~2023-06-04] VITALS: Ht 172.7 cm; Wt 75.0 kg
[2023-06-04 10:01] VITALS: O2SAT 100
[2023-06-04 10:24] VITALS: TEMP 98.6
[2023-06-04 10:41] LABS: BASOPHILS % 0.8 % (0.0-2.0); EOSINOPHILS % 4.3 % (0.0-5.0); HEMATOCRIT. 37.1 % (42.0-52.0); HEMOGLOBIN. 12.7 g/dL (14.0-18.0); LYMPHOCYTES % 30.3 % (20.0-50.0); MEAN CORPUSCULAR HEMOGLOBIN 32.7 pg (28.0-32.0); MEAN CORPUSCULAR HGB CONC 34.3 g/dL (31.0-37.0); MEAN CORPUSCULAR VOLUME 95.2 fL (80.0-94.0); MEAN PLATELET VOLUME 6.4 fl (7.4-10.4); NEUTROPHILS % 54.6 % (40.0-76.0); PLATELET 313 x1000/uL (130-400); RED BLOOD CELL COUNT 3.89 mill/uL (4.7-6.1); RED CELL DISTRIBUTION WIDTH 13.2 % (11.6-14.6)
[2023-06-04 10:50] LABS: INDEX HEMOLYSI 1 (1-3)
[2023-06-04 10:53] LABS: AMMONIA 28 uMol/L (<32)
[2023-06-04 10:57] LABS: CREATINE KINASE 693 IU/L (39-308); ETHANOL BLOOD < 10 mg/dL (-10)
[2023-06-04 13:00] LABS: CHLORIDE 102 mEq/L (98-107); INDEX HEMOLYSI 2 (1-3); INDEX ICTERIC 1 (1-4); INDEX LIPEMIC 1 (1-3); POTASSIUM 3.5 mEq/L (3.5-5.1); SODIUM 134 mEq/L (136-145)
[2023-06-04 13:07] LABS: ALANINE AMINOTRANSFERASE 33 IU/L (13-61); ALBUMIN 3.7 g/dL (3.4-5.0); ASPARTATE AMINOTRANSFERASE 32 IU/L (15-37); BILIRUBIN TOTAL 0.7 mg/dL (0.1-1.0); CALCIUM 8.9 mg/dL (8.5-10.1); CARBON DIOXIDE 24 mEq/L (21-32); CREATININE 1.1 mg/dL (0.6-1.3); GLUCOSE 93 mg/dL (70-105); PROTEIN TOTAL 7.3 g/dL (6.0-8.3); UREA NITROGEN BLOOD 22 mg/dL (7-21)
[2023-06-04] MEDS ORDERED: MAGNESIUM/ALUMINUM HYDROXIDE/SIMETHICONE 30ML UDC PO ONE (13:45)
[2023-06-04 14:37] VITALS: BP 121/77; PULSE 92; RESP 17
[2023-06-04 15:31] LABS: CLARITY URINE CLEAR (CLEAR); COLOR URINE YELLOW (YELLOW); GLUCOSE URINE NEGATIVE (NEGATIVE); KETONES URINE 1+ (NEGATIVE); LEUKOCYTE ESTERASE URINE NEGATIVE (NEGATIVE); NITRITE URINE NEGATIVE (NEGATIVE); OCCULT BLOOD URINE NEGATIVE (NEGATIVE); PH URINE 5.5 (4.5-8.0); PROTEIN URINE NEGATIVE (NEGATIVE); SPECIFIC GRAVITY URINE 1.021 (1.005-1.030); UROBILINOGEN URINE 0.2 E.U./dL (0.2-1.0)
[2023-06-04 15:50] LABS: *AMPHETAMINES SCREEN URINE PRESUMTIVE POSITIVE (NEGATIVE); *BARBITURATES SCREEN URINE NEGATIVE (NEGATIVE); *BENZODIAZEPINES SCREEN URINE NEGATIVE (NEGATIVE); *COCAINE SCREEN URINE NEGATIVE (NEGATIVE); CANNABINOID URINE SCREEN NEGATIVE (NEGATIVE); ECSTASY MDMA SCREEN URINE CONF.TEST INDICATED (NEGATIVE); METHADONE URINE SCREEN NEGATIVE (NEGATIVE); OPIATES URINE SCREEN NEGATIVE (NEGATIVE); PHENCYCLIDINE URINE SCREEN NEGATIVE (NEGATIVE)
== END 2023-06-04 15:51 | disposition home or self-care (01) ==
LOC: ER 09:57
DX: T65.91XA Toxic effect of unspecified substance, accidental (unintentional), initial encounter (principal); F15.10 Other stimulant abuse, uncomplicated; F12.10 Cannabis abuse, uncomplicated; J45.909 Unspecified asthma, uncomplicated; Z79.899 Other long term (current) drug therapy; Y92.9 Unspecified place or not applicable
CPT/HCPCS: 36415; 80053; 80305; 80320; 81003; 82140; 82550; 85025; 99283; G0480

== ENCOUNTER 2025-03-14 10:26 | Emergency (ER) | payer OTHER, MEDICAID ==
[~2025-03-14] VITALS: Ht 172.7 cm; Wt 87.0 kg
[~2025-03-14 10:26] MED LIST changes: +FLUO-336 PO; -FLUOX10 PO; +GABA-1180 MT; -GABA-532 MT
[2025-03-14 10:28] VITALS: O2SAT 100
[2025-03-14 11:03] LABS: BASOPHILS % 0.3 % (0.0-2.0); EOSINOPHILS % 1.1 % (0.0-5.0); HEMATOCRIT. 40.8 % (42.0-52.0); HEMOGLOBIN. 13.4 g/dL (14.0-18.0); LYMPHOCYTES % 23.5 % (20.0-50.0); MEAN CORPUSCULAR HEMOGLOBIN 31.5 pg (28.0-32.0); MEAN CORPUSCULAR HGB CONC 32.8 g/dL (31.0-37.0); MONOCYTES % 9.9 % (2.0-8.0); NEUTROPHILS % 65.2 % (40.0-76.0); RED BLOOD CELL COUNT 4.25 mill/uL (4.7-6.1); RED CELL DISTRIBUTION WIDTH 13.1 % (11.6-14.6)
[2025-03-14 11:07] LABS: CARBON DIOXIDE 24 mEq/L (21-32); CHLORIDE 102 mEq/L (98-107); POTASSIUM 4.2 mEq/L (3.5-5.1); SODIUM 136 mEq/L (136-145)
[2025-03-14 11:13] LABS: CREATININE 1.4 mg/dL (0.6-1.3); ETHANOL BLOOD < 10 mg/dL (<10); GLUCOSE 124 mg/dL (70-105); UREA NITROGEN BLOOD 20 mg/dL (9-23)
[2025-03-14 11:23] LABS: TROPONIN I HIGH SENSITIVITY < 4 ng/L (3.0-53)
[2025-03-14 11:28] LABS: DIFFERENTIAL COMMENT 1
[2025-03-14 11:44] LABS: PLATELET 204 x1000/uL (130-400)
[2025-03-14 14:46] LABS: CLARITY URINE CLEAR (CLEAR); COLOR URINE DARK YELLOW (YELLOW); GLUCOSE URINE NEGATIVE (NEGATIVE); KETONES URINE TRACE (NEGATIVE); LEUKOCYTE ESTERASE URINE NEGATIVE (NEGATIVE); NITRITE URINE NEGATIVE (NEGATIVE); OCCULT BLOOD URINE NEGATIVE (NEGATIVE); PROTEIN URINE TRACE (NEGATIVE); SPECIFIC GRAVITY URINE 1.043 (1.005-1.030)
[2025-03-14 14:51] LABS: *AMPHETAMINES SCREEN URINE PRESUMPTIVE POSITIVE (NEGATIVE); *BENZODIAZEPINES SCREEN URINE NEGATIVE (NEGATIVE)
[2025-03-14 14:52] LABS: *BARBITURATES SCREEN URINE NEGATIVE (NEGATIVE); *COCAINE SCREEN URINE NEGATIVE (NEGATIVE); CANNABINOID URINE SCREEN NEGATIVE (NEGATIVE); ECSTASY MDMA SCREEN URINE CONF.TEST INDICATED (NEGATIVE); METHADONE URINE SCREEN NEGATIVE (NEGATIVE); OPIATES URINE SCREEN NEGATIVE (NEGATIVE); PHENCYCLIDINE URINE SCREEN NEGATIVE (NEGATIVE)
[2025-03-14 15:02] VITALS: BP 104/69; PULSE 78; RESP 11; TEMP 36.2; O2SAT 99
[2025-03-14 15:15] LABS: SQUAMOUS EPITHELIAL CELL URINE RARE /lpf (RARE/1+)
[2025-03-14 15:16] LABS: BACTERIA URINE TRACE; WBC URINE 0-2 /hpf (0-2)
[2025-03-14 15:17] LABS: RBC URINE 0-2 /hpf (0-2)
== END 2025-03-14 15:58 | disposition short-term general hospital (02) ==
LOC: ER 10:26
DX: R45.851 Suicidal ideations (principal); G93.40 Encephalopathy, unspecified; F12.10 Cannabis abuse, uncomplicated; F15.10 Other stimulant abuse, uncomplicated; F32.A Depression, unspecified; R51.9 Headache, unspecified; Z79.899 Other long term (current) drug therapy
CPT/HCPCS: 36415; 71045; 80048; 80305; 80307; 80320; 80329; 81003; 84484; 85025; 93005; 99285; G0480